=== PATIENT | male | born 1945 | race Caucasian/White ===

== ENCOUNTER → 2023-10-12 07:18 | Outpatient (REF) | payer OTHER, SELFPAY | LOC: PAVMRI 07:18 | PROVIDERS: ATTENDING PHYSICIAN Anesthesiology; FAMILY PHYSICIAN Internal Medicine | DX: M54.16 Radiculopathy, lumbar region (principal) | CPT/HCPCS: 72158; A9575 ==

== ENCOUNTER 2024-07-09 11:10 | Emergency (ER) | payer OTHER, SELFPAY ==
[2024-07-09 11:21] VITALS: BP 147/97
--- NOTE | 2024-07-09 11:32 | ED.GENMED ---
ED Provider Triage
<Marcela Watson PA-C - Last Filed: 07/11/24 07:05>
-
Patient seen by provider in Triage?: Seen in Triage
79 y/o M
htn
mechanical trip and fall today and hit head
no LOC
having L shoulder and knee pain , difficulty walking
via ems
A medical screening examination has been initiated by a qualified medical provider. Based on the assessment performed at this time, it has been determined that an emergent medical condition may exist and the patient has been informed that further
medical evaluation and possible additional diagnostic testing may be needed.
HPI: This is a medical evaluation conducted in person to initiate diagnostic evaluation and provide initial therapeutics. Please see further documentation by the treating clinician.
GENERAL: Alert , in no apparent distress
ENT: No visible abnormalities
LUNGS: No acute respiratory distress
NEUROLOGICAL: Alert and oriented
SKIN: Abrasion left forehead. No visible changes.
MUSCULOSKELETAL: Left shoulder significantly limited range of motion, unable to visualize due to T-shirt
Left knee unable to visualize due to pants but he does have significant swelling over the patella and limited active knee extension from flexion.
PSYCH: Normal and appropriate interaction.
Will initiate workup with CT scan of head and neck, x-rays of the shoulder and knee, he seems to have no difficulty with hip range of motion
No anticoagulation
History of Present Illness
<Marcela Watson PA-C - Last Filed: 07/11/24 07:05>
General
Chief Complaint: Fall
Time Seen by Provider: 07/09/24 11:56
<Karine Daly PA-C - Last Filed: 07/09/24 18:26>
General
Source: patient
Exam Limitations: none
Nursing documentation reviewed up to this point in time: agreed with
History of Present Illness
History of Present Illness:
79-year-old male with past medical history of COPD, hypertension, hyperlipidemia, presents to the emergency department today with left shoulder pain, left knee pain, and neck pain following a fall. Patient reports that he was walking into [employer]
today when he stepped up onto the curb and loss his footing and subsequently fell onto his left side. He did not feel dizzy prior to falling. He did not loose consciousness. He denies chest pain, shortness of breath, palpitations. Patient was helped
into the car by his family and was wheel chaired into the emergency department, he is not able to bear weight on his left knee without significant pain. He does not take a blood thinner.
Review of Systems
<RAMANA Holguin Last Filed: 07/09/24 18:26>
Review of Systems
All Other Systems: ROS reviewed and negative except as documented in HPI and ROS
Phy Exam
<RAMANA Holguin Last Filed: 07/09/24 18:26>
Physical Exam
Physical Exam:
General: Patient is well appearing and in no acute distress; non-toxic
Skin: Warm and dry, no rashes or lesions
Head: Abrasion noted to the left frontal scalp, no palpable hematomas, no bony deformities
Eyes: Sclera non-icteric. EOMs intact.
Cardiac: Regular rate and rhythm, no murmurs, no tenderness to palpation of the external chest wall
Peripheral Vascular: 2+ dorsalis pedis and posterior tibial pulses bilaterally
Pulm: Normal respiratory effort, no wheezes, rales, or rhonchi
Abdomen: No abdominal tenderness to palpation
Musculoskeletal: Abrasions and swelling noted to left knee, pain with any ROM, exam limited. Pain with abduction of the left shoulder but not tenderness to palpation, no palpable bony deformities
Neuro: CN II-XII intact, no focal neurologic deficits.
Psychiatric: Appropriate mood and affect.
Course
<RAMANA Barton Last Filed: 07/11/24 07:05>
Orders/Labs/Results
Orders:
Orders
07/09/24 11:25
Knee, Left 4 or More Views [CR Knee - Left 4 Or More View*] Urgent
Comment:
Reason For Exam: injury
07/09/24 11:26
Shoulder, Left, Trauma CR [CR Shoulder, Trauma - Left] Urgent
Comment:
Reason For Exam: fall
07/09/24 11:31
CT Cervical Spine W/o Iv Contr Urgent
Comment:
Reason For Exam: fall pain
CT Head W/o Iv Contrast Urgent
Comment:
Reason For Exam: fall head strike
Tetanus/Diphth/Acelpertussis [Adacel] 0.5 ml IM .ONCE ONE
07/09/24 12:30
Acetaminophen [Tylenol] 1,000 mg PO NOW STA
07/09/24 13:51
Knee Immobilizer Left-Treatmen ONCE
07/09/24 14:25
Pt Eval And Treat Urgent
Activity Level: With Assistance
Vital Signs
Initial and Last Documented VS:
Initial Vital Signs
Temp Pulse Resp BP Pulse Ox
37.0 C 97 16 147/97 98
07/09/24 11:21 07/09/24 11:21 07/09/24 11:21 07/09/24 11:21 07/09/24 11:21
Last Documented Vital Signs
Temp Pulse Resp BP Pulse Ox
37.0 C 84 16 150/78 95
07/09/24 11:21 07/09/24 14:31 07/09/24 14:31 07/09/24 14:31 07/09/24 14:31
Nayelilt;Karine Daly PA-C - Last Filed: 07/09/24 18:26>
Orders/Labs/Results
Orders:
Orders
07/09/24 11:25
Knee, Left 4 or More Views [CR Knee - Left 4 Or More View*] Urgent
Comment:
Reason For Exam: injury
07/09/24 11:26
Shoulder, Left, Trauma CR [CR Shoulder, Trauma - Left] Urgent
Comment:
Reason For Exam: fall
07/09/24 11:31
CT Cervical Spine W/o Iv Contr Urgent
Comment:
Reason For Exam: fall pain
CT Head W/o Iv Contrast Urgent
Comment:
Reason For Exam: fall head strike
Tetanus/Diphth/Acelpertussis [Adacel] 0.5 ml IM .ONCE ONE
07/09/24 12:30
Acetaminophen [Tylenol] 1,000 mg PO NOW STA
07/09/24 13:51
Knee Immobilizer Left-Treatmen ONCE
07/09/24 14:25
Pt Eval And Treat Urgent
Activity Level: With Assistance
Vital Signs
Initial and Last Documented VS:
Initial Vital Signs
Temp Pulse Resp BP Pulse Ox
37.0 C 97 16 147/97 98
07/09/24 11:21 07/09/24 11:21 07/09/24 11:21 07/09/24 11:21 07/09/24 11:21
Last Documented Vital Signs
Temp Pulse Resp BP Pulse Ox
37.0 C 84 16 150/78 95
07/09/24 11:21 07/09/24 14:31 07/09/24 14:31 07/09/24 14:31 07/09/24 14:31
<Shima Oviedo MD - Last Filed: 07/09/24 14:10>
Orders/Labs/Results
Orders:
Orders
07/09/24 11:25
Knee, Left 4 or More Views [CR Knee - Left 4 Or More View*] Urgent
Comment:
Reason For Exam: injury
07/09/24 11:26
Shoulder, Left, Trauma CR [CR Shoulder, Trauma - Left] Urgent
Comment:
Reason For Exam: fall
07/09/24 11:31
CT Cervical Spine W/o Iv Contr Urgent
Comment:
Reason For Exam: fall pain
CT Head W/o Iv Contrast Urgent
Comment:
Reason For Exam: fall head strike
Tetanus/Diphth/Acelpertussis [Adacel] 0.5 ml IM .ONCE ONE
07/09/24 12:30
Acetaminophen [Tylenol] 1,000 mg PO NOW STA
07/09/24 13:51
Knee Immobilizer Left-Treatmen ONCE
07/09/24 14:25
Pt Eval And Treat Urgent
Activity Level: With Assistance
Vital Signs
Initial and Last Documented VS:
Initial Vital Signs
Temp Pulse Resp BP Pulse Ox
37.0 C 97 16 147/97 98
07/09/24 11:21 07/09/24 11:21 07/09/24 11:21 07/09/24 11:21 07/09/24 11:21
Last Documented Vital Signs
Temp Pulse Resp BP Pulse Ox
37.0 C 84 16 150/78 95
07/09/24 11:21 07/09/24 14:31 07/09/24 14:31 07/09/24 14:31 07/09/24 14:31
Nayelilt;Karine Daly PA-C - Last Filed: 07/09/24 18:26>
MDM/Problems Addressed
Differential Diagnosis Includes:
ddx include distal femur fracture, tibial plateau fracture, patellar fracture, subdural hematoma, epidural hematoma
MDM/Problems Addressed:
79-year-old male with past medical history of COPD, hypertension, hyperlipidemia, presents to the emergency department today with left shoulder pain, left knee pain, and neck pain following a fall. He did not lose consciousness. The fall was
purely mechanical. On exam, he is well-appearing, in no acute distress, does have paracervical tenderness palpation but no palpable bony deformities, no step-offs. Does have significant swelling surrounding the knee. His CT of the head, cervical
spine, and shoulder is negative. X-ray of the right knee reveals a patellar fracture, reviewed case with orthopedics, patient placed in knee immobilizer, patient was evaluated by physical therapy given walker. Patient stable for discharge, provided
with orthopedic follow-up.
Chronic conditions affecting care:
COPD, HTN, HLP
<Karine Daly PA-C - Last Filed: 07/09/24 18:26>
*Pulse Oximetry
Patient hypoxic: no
*Critical Care Note
Total Time (30-74mins, 75-104mins- exclusive of procedures): Not Applicable
Data Reviewed
Review of Other/Old Records Reveals: Records (Reviewed ER physician documentation discharge summary 02/23/2016, patient seen for COPD exacerbation and also lumbar decompressive laminectomy)
Source: patient and records
<Karine Daly PA-C - Last Filed: 07/09/24 18:26>
Patient Management
Escalation/DeEscalation of care consider admission/obs:
Admit not indicated, patient stable for discharge
ED Attending Note
<Marcela Watson PA-C - Last Filed: 07/11/24 07:05>
-
Portions of this chart may have been created with voice recognition software.� Occasional wrong word or��sound alike� substitutions may have occurred due to the inherent limitations of voice recognition software.
<Shima Oviedo MD - Last Filed: 07/09/24 14:10>
ED Attending Note
Patient seen and examined by attending physician: Yes
I performed the substantive portion of visit, reviewed & personally made and approve the management plan that is documented in note by myself or АННА.: Yes
ED Attending Note:
I have seen and evaluated the patient with a [id number] encounter. I have spoken to the [PA] and involved in the medical history, the physical exam, medical decision making.
Evaluation and management service: agree unless noted differently below.
Results interpretation: agree unless noted differently below.
Patient is a 79-year-old man presenting to the emergency department after a fall. Patient states that he tripped on the curb fell hitting his head left shoulder and left knee. He did not lose consciousness. He is not on any blood thinners. He
did not try ambulating secondary to the swelling at his left knee. He is unsure when his last tetanus was.
GENERAL: no acute distress
HEENT: Small abrasion to the left scalp, extraocular muscles intact, no signs of entrapment, dentition intact, no other obvious trauma
NECK: no midline tenderness, normal range of motion, no other obvious trauma
BACK: no midline tenderness, no other obvious trauma
CHEST: no tenderness, no flail segment, no subcutaneous emphysema, no other obvious trauma
LUNGS: clear to auscultation bilaterally
CARDIOVASCULAR: regular rate and rhythm
ABDOMEN: soft, non-tender, no masses, no other obvious trauma
PELVIS: stable, no obvious injury
EXTREMITIES: moving all extremities, distal pulses intact, left shoulder with small abrasion, left knee with significant swelling and 2 abrasions. Able to flex and extend knee. Neurovascularly intact
NEUROLOGIC: awake, alert x 3, no focal deficits
79-year-old man presenting to the emergency department after a mechanical fall. Vitals unremarkable exam does show significant swelling to his left knee as well as an abrasion to his left scalp. Will rule out traumatic intracranial injury as well
as fracture. Of note patient has had both of his patella fracture and the right one did require extensive knee surgery. X-ray per my interpretation does show a left-sided patellar fracture. We discussed with orthopedic surgery. He does state
that with his prior fracture he was able to use a transport wheelchair as he is unable to use crutches. Anticipate discharge if remaining imaging is unremarkable and orthopedic is amenable to outpatient follow-up.
Discharge Plan
Departure
Patient Disposition: Home (Routine Discharge)
Date of Disposition: 07/09/24
Time of Disposition: 15:34
Patient with high blood pressure during this ER visit?: Yes
Condition: Good
Discharge Problem:
Closed fracture of left patella, Fall
Instructions: Patella Fracture, Preventing falls in adults, BLOOD PRESSURE
Prescriptions:
No Action
latanoprost 1 DROP drops
1 drp OPHTHALMIC QPM
carvedilol 6.25 MG tablet
6.25 mg PO BID
lisinopril-hydrochlorothiazide 1 EACH tablet
1 tab PO .IN THE AM
pravastatin 40 MG tablet
40 mg PO QPM
spironolactone 25 MG tablet
12.5 mg PO .IN THE AM
fluticasone propionate 1 SPRAY spray,suspension
2 spray intranasal PRN PRN (Reason: congestion)
Patient Comments:
50mcg
finasteride 5 MG tablet
5 mg PO QPM
calcium carbonate-vitamin D3 1 EACH tablet
1 ea PO BID
Vitamin B12:
500 mg PO DAILY
hydrocodone-acetaminophen [[place]] 1 EACH tablet
1 ea PO Q6HPRN PRN (Reason: pain) Qty: 40 0RF
Rx Instructions:
Take 1 tablet four times a day, every 6 hours for pain
lorazepam 1 MG tablet
1 mg PO TIDPRN PRN (Reason: pain/spasms) Qty: 40 0RF
Referrals:
Danielito Haynes MD [Family Provider] -
Activity Restrictions/Additional Instructions:
You should receive a call from Dr. Mccabe's office to set up an appointment for follow-up and eventually surgery.
Please use your walker when ambulating and please keep the knee immobilizer on when ambulating.
Please return to emergency department should you develop loss of sensation in the left lower extremity, pallor, extreme pain, chest pain, shortness of breath, syncopal episodes, facial droop, weakness one-sided body versus other, or any other signs
or symptoms worrisome to you.
Interventions
Interventions:
*Risk Screen - Suicide Last Done: 07/09/24 11:21
*General Assessment Last Done: 07/09/24 11:21
*Neglect/Abuse Screening Last Done: 07/09/24 11:21
ED- Fall Risk Assessment Last Done: 07/09/24 11:40
*ED COVID-19 Vaccine History Last Done: 07/09/24 11:40
*Nursing Disposition Last Done: 07/09/24 15:47
ED-Musculoskeletal Assessment Last Done: 07/09/24 11:40
ED- Neurological Assessment Last Done: 07/09/24 11:40
ED-Skin Assessment Last Done: 07/09/24 11:40
Discharge Date and Time
Discharge Date/Time: 07/09/24 15:49
Print Language: PASHTO
[2024-07-09] MEDS: ADACEL 0.5 ML IM (12:04)
[2024-07-09] MEDS: TYLENOL 1000 MG PO (13:17)
[2024-07-09 14:31] VITALS: BP 150/78
== END 2024-07-09 15:49 | disposition home or self-care (01) ==
LOC: EMR 11:10
PROVIDERS: EMERGENCY PHYSICIAN Student in an Organized Health Care Education/Training Program; FAMILY PHYSICIAN Internal Medicine
DX: S00.81XA Abrasion of other part of head, initial encounter (principal); S82.002A Unspecified fracture of left patella, initial encounter for closed fracture; W19.XXXA Unspecified fall, initial encounter; Y93.01 Activity, walking, marching and hiking; J44.9 Chronic obstructive pulmonary disease, unspecified; I10 Essential (primary) hypertension; E78.00 Pure hypercholesterolemia, unspecified
CPT/HCPCS: 99284; 29505; 70450; 72125; 73030; 73564; 90715